=== PATIENT | female | born 1975 | race Caucasian/White ===

== ENCOUNTER → 2019-04-19 13:03 | Outpatient (CLI) | payer OTHER, SELFPAY ==
--- NOTE | 2019-04-19 13:06 | DI.US.S_ITS ---
PROCEDURE: US OB <= 14 WEEKS FETUS INDICATIONS: INITIAL US FOR SIZING AND DATING OUTSIDE/PRIOR DATING DATA: Last menstrual period (LMP): 02/24/19. LMP-based estimated date of delivery (YARELI): 12/01/19. First dating scan (date and location): None available. Estimated date of delivery (YARELI) from first dating scan: Not applicable. TECHNIQUE: Real-time scanning was performed of the fetus and maternal pelvic organs, with image documentation. Endovaginal scanning was also performed to better visualize the fetus and maternal ovaries. COMPARISON: None. FINDINGS: Embryo: A gestational sac is not identified within the endometrial canal. Note is made of a heterogeneous solid-appearing mass with internal blood flow at the right ovary measuring up to 2.3 x 1.7 x 1.9 cm. Measurement variability in dating: +/- 4 weeks by LMP, +/- 7 days by mean sac diameter (use before 6 weeks gestation if crown-rump length not able to be measured), +/- 5 days by crown-rump length (up to 8 weeks 6 days gestation), +/- 7 days by crown-rump length (up to 13 weeks 6 days gestation). Maternal organs: Ovaries 4.0 x 1.9 x 1.9 cm on the right and 3.8 x 1.6 x 1.6 cm on the left. Limited images through the kidneys demonstrate no hydronephrosis. IMPRESSION: An intrauterine gestation is not found. No prior OB ultrasound is available for review. The patient reports onset of vaginal bleeding A. in passing a material and clot 3 days ago. This likely represents a manifestation of spontaneous . As noted, there is a solid mass like appearance at the right ovary that measures 2.3 x 1.7 x 1.9 cm perhaps involuting corpus luteum cyst but correlation with clinical status and if necessary quantitative beta hCG is recommended to ensure that ectopic is not superimposed. Findings called to the providers office. Dictated by: Chinmay Blood M.D. on 04/19/2019 at 16:18 Approved by: Chinmay Blood M.D. on 04/19/2019 at 16:34
== END ==
PROVIDERS: PCP Family Medicine; Visit Provider Obstetrics & Gynecology
DX: O03.9 Complete or unspecified spontaneous abortion without complication (principal); N83.9 Noninflammatory disorder of ovary, fallopian tube and broad ligament, unspecified
CPT/HCPCS: 76801; 76817

== ENCOUNTER → 2023-03-29 15:11 | Outpatient (CLI) | payer OTHER, SELFPAY ==
[2023-03-29 15:59] LABS: Add Manual Diff / Slide Review NO; Basophils Absolute Auto 200 /uL (0-100); Basophils Percent Auto 1.3 % (0-2); Eosinophils Absolute Auto 500 /uL (0-450); Eosinophils Percent Auto 4.4 % (2-4); Hematocrit 42.3 % (36-46); Hemoglobin 13.8 g/dL (12.0-16.0); Lymphocytes Absolute Auto 3500 /uL (1100-4500); Lymphocytes Percent Auto 29.5 % (25-40); Mean Corpuscular HGB Conc 32.7 % (30-36); Mean Corpuscular Hemoglobin 25.5 PG (26-34); Mean Corpuscular Volume 78.1 fL (80-100); Monocytes Absolute Auto 800 /uL (0-900); Neutrophils Absolute Auto 6900 /uL (1500-7000); Neutrophils Percent Auto 57.8 % (50-75); Platelet Count 342 X10^3/uL (150-400); Red Blood Cell Count 5.42 X10^6/uL (4.0-5.2); White Blood Cell Count 11.9 X10^3/uL (4.5-11.0)
[2023-03-29 16:18] LABS: Lactate Dehydrogenase 244 U/L (120-246)
[2023-03-29 16:34] LABS: Bilirubin Urine UA NEGATIVE (NEGATIVE); Color Urine UA YELLOW; Glucose Urine UA NEGATIVE (Negative); Ketones Urine UA NEGATIVE (NEGATIVE); Leukocyte Esterase Urine UA NEGATIVE (NEGATIVE); Nitrite Urine UA NEGATIVE (Negative); Occult Blood Urine UA NEGATIVE (Negative); Protein Urine UA NEGATIVE (Negative)
[2023-03-29 16:38] LABS: Appearance Urine UA Slightly Cloudy
[2023-03-29 16:54] LABS: Bacteria Urine Moderate (10-30); Culture Indicated Urine Specimen Cultured; RBC Urine 0-1/HPF (0-5/HPF); Squamous Epithelial Cell Urine 10-30 /HPF (0-5/HPF); WBC Urine 5-10/HPF (0-5/HPF)
== END ==
PROVIDERS: PCP Family Medicine; Referring Provider Family Medicine; Visit Provider Family Medicine
DX: D72.820 Lymphocytosis (symptomatic) (principal)
CPT/HCPCS: 36415; 81001; 83615; 85025; 87086